=== PATIENT | male | born 1985 | race Caucasian/White ===

== ENCOUNTER 2018-02-22 21:36 | Emergency (ER) | payer OTHER ==
[2018-02-22] MEDS ORDERED: TDAP ADULT 0.5 ML INJ (BOOSTRIX) IM ONE (22:26)
--- NOTE | 2018-02-22 22:39 | EDPHY ---
H & P Smoking Status: Never smoked Time Seen by Provider: 02/22/18 22:15 HPI/ROS: CHIEF COMPLAINT: Left knee laceration HISTORY OF PRESENT ILLNESS: 32-year-old male with out-of-date tetanus sustained accidental laceration to his left prepatellar region when he slipped all he was hiking impacting this area against a rock. He is able to bear weight. Denies underlying osseous discomfort. PHYSICAL EXAM (Prior to examination, patient consented to physical exam, hands were washed and my usual and customary physical exam procedures followed) 1) GENERAL: Well-developed, well-nourished, alert and oriented. Appears to be in no acute distress. 2) HEAD: Normocephalic 3) HEENT: sclera anicteric 4) LUNGS: Breathing comfortably. 5) SKIN: Left prepatellar 2 cm well-demarcated superficial laceration. 6) MUSCULOSKELETAL: Flexion extension at the knee is intact both actively and passively with no deficits. No pain to the underlying osseous structures. The patella is nontender. (Julian Valenzuela) Constitutional: Initial Vital Signs Temperature (C) 36.6 C 02/22/18 21:40 Heart Rate 56 L 02/22/18 21:40 Respiratory Rate 16 02/22/18 21:40 Blood Pressure 119/72 02/22/18 21:40 O2 Sat (%) 96 02/22/18 21:40 O2 Delivery Mode Room Air Allergies/Adverse Reactions: No Known Allergies Allergy (Unverified 02/22/18 21:40) Home Medications: Medication Instructions Recorded NK [No Known Home Meds] 02/22/18 MDM/Departure - [facility] Procedures: Procedure: Laceration repair. I explained the indications, risks and benefits for both laceration repair and anesthetic administration. Verbal consent was obtained from the patient . The laceration on the left prepatellar region was anesthetized using 0.5% bupivicaine with epinephrine . After anesthetic administered the patient was observed for a period of time and had no apparent adverse effects. The wound was cleaned, prepped, draped in normal sterile fashion and explored to its base. No foreign body seen, no foreign bodies palpated. There were no deep structures involved. This is a superficial laceration with no clinical evidence of traumatic arthrotomy. The wound was repaired with 3 simple interrupted 4 0 Prolene sutures. The wound repair was simple. The procedure was performed by myself. Patient has been informed that scarring will occur, although efforts have been made to minimize this. (Julian Valenzuela) Medications Given: Discontinued Medications Diphtheria/Tetanus/Acell Pertussis (Boostrix) 0.5 ml IM .ONCE ONE Stop: 02/22/18 22:27 Last Admin: 02/22/18 22:42 Dose: 0.5 ml ED Course/Re-evaluation: This patient has no underlying osseous discomfort, is able to bear full weight. This laceration is very superficial. I think that traumatic arthrotomy is less than likely I do not think that the benefits of dedicated thin slice CT imaging or sudden low testing outweigh the risks I have a low pretest suspicion for traumatic arthrotomy. In addition I do not think that x-rays indicated as he has no underlying osseous discomfort. This is a clean wound and I think that primary closure is appropriate. Usual and customary wound precautions and instructions provided. His tetanus has been updated. I saw this patient independently based on established practice protocols. Care of patient under supervision of secondary supervising physician Dr Claros . (Julian Valenzuela) PHYSICIAN DOCUMENTATION: The patient was evaluated and managed by the Physician Regulator Pin Inserter. My co- signature indicates that I have reviewed this chart and I agree with the findings and plan of care as documented. I am the secondary supervising physician. (Jazzy Claros) - Depart Disposition: Home, Routine, Self-Care Clinical Impression: Laceration of left knee Condition: Good Instructions: Care For Your Stitches (ED), Laceration (ED) Additional Instructions: Return to the ER if you develop redness, swelling, discharge, warmth to the wound, red streaks going up your leg, or any other symptoms that concern you. Referrals: Return, to the ED in 14 days for suture removal [Other] - 03/08/18
[2018-02-22 23:05] VITALS: BP 117/65
== END 2018-02-22 23:06 | disposition home or self-care (01) ==
PROC: 0HQLXZZ Repair Left Lower Leg Skin, External Approach (ICD-10-PCS; principal; 2018-02-22)
DX: S81.012A Laceration without foreign body, left knee, initial encounter (principal); Z23 Encounter for immunization; W01.198A Fall on same level from slipping, tripping and stumbling with subsequent striking against other object, initial encounter; Y99.8 Other external cause status; Y93.01 Activity, walking, marching and hiking